=== PATIENT | male | born 1995 ===

== ENCOUNTER 2018-09-24 12:53 | Emergency (ER) | payer OTHER ==
[~2018-09-24] VITALS: Ht 177.8 cm; Wt 108.0 kg
== END 2018-09-24 15:35 | disposition home or self-care (01) ==
LOC: ER 12:53
DX: S61.221A Laceration with foreign body of left index finger without damage to nail, initial encounter (principal); W45.8XXA Other foreign body or object entering through skin, initial encounter; Y93.89 Activity, other specified; Y92.69 Other specified industrial and construction area as the place of occurrence of the external cause; Y99.8 Other external cause status